=== PATIENT | female | born 1985 | race Caucasian/White ===

== ENCOUNTER 2017-05-11 19:31 | Emergency (ER) | payer SELFPAY ==
[~2017-05-11] VITALS: Ht 160 cm; Wt 52.2 kg
--- NOTE | 2017-05-11 21:00 | NUR ---
PT BIB [address] 85 AND [employer]ICE FOLLOWING SEIZURE. PT A&O, RESPONSIVE, AND ANSWERS APPROPRIATELY. NO DISTRESS NOTED AT THIS TIME. PT RESTING IN A POSITON OF COMFORT. SIDES OF BED PADDED FOR PT SAFETY. PT DENIES HX OF SEIZURE DISORDER.
--- NOTE | 2017-05-11 21:15 | NUR ---
ROBEL FAYE AT BEDSIDE FOR MSE.
[2017-05-11 21:39] LABS: BASOPHILS # (AUTO) 0.1 K/uL (0.0-8.0); BASOPHILS % (AUTO) 1.2 % (0.0-2.0); HEMATOCRIT 36.2 % (31.2-41.9); HEMOGLOBIN 12.5 g/dL (10.9-14.3); LYMPHOCYTES # (AUTO) 0.6 K/uL (20.0-40.0); MEAN CORPUSCULAR HEMOGLOBIN 33.5 uug (24.7-32.8); MEAN CORPUSCULAR HGB CONC 34 g/dL (32.3-35.6); MEAN CORPUSCULAR VOLUME 97.3 fL (75.5-95.3); MONOCYTES # (AUTO) 0.3 K/uL (2.0-10.0); NEUTROPHILS # (AUTO) 6.9 K/uL (1.8-8.9); NEUTROPHILS % (AUTO) 86.8 % (38.5-71.5); PLATELET COUNT (AUTO) 90 K/uL (179-408); RED BLOOD CELL COUNT(AUTO) 3.72 MIL/uL (3.63-4.92); WHITE BLOOD COUNT (AUTO) 7.9 K/uL (3.8-11.8)
[2017-05-11 21:42] LABS: CREATININE 0.8 mg/dL (0.6-1.3); POTASSIUM 3.3 mmol/L (3.5-5.1)
[2017-05-11 21:58] LABS: BAND % (MANUAL) 3 % (0-10); LYMPHOCYTES % (MANUAL) 7 % (20-40); MONOCYTES % (MANUAL) 5 % (2-10); NEUTROPHILS % (MANUAL) 85 % (42-75)
[2017-05-11] MEDS ORDERED: ONDANSETRON ODT 4 MG TAB.RAPDIS SL ONE (22:30)
[2017-05-11] MEDS ORDERED: ONDANSETRON ODT 4 MG TAB.RAPDIS ONE (22:31)
[2017-05-11] MEDS ORDERED: ACETAMINOPHEN ES 500 MG TABLET ONE (22:39)
--- NOTE | 2017-05-11 22:42 | NUR ---
Patient discharged to home in stable conditon. Written and verbal after care instructions given. Patient verbalizes understanding of instructions. Pt ambulated from ER w/ steady gait. No distress noted. Pt took all personal belongings.
[2017-05-11] MEDS ORDERED: ACETAMINOPHEN 325 MG TABLET PO ONE (22:45)
[2017-05-11 22:46] VITALS: BP 111/66
== END 2017-05-11 22:48 | disposition home or self-care (01) ==
LOC: ER 19:31
DX: G40.909 Epilepsy, unspecified, not intractable, without status epilepticus (principal); F41.9 Anxiety disorder, unspecified
CPT/HCPCS: 36415; 80048; 84703; 85025; 99284; A4663; A9150; Q0162

== ENCOUNTER 2019-03-12 16:33 | Emergency (ER) | END 2019-03-12 20:10 | disposition home or self-care (01) | DX: F10.239 Alcohol dependence with withdrawal, unspecified (principal); F41.9 Anxiety disorder, unspecified; Z79.899 Other long term (current) drug therapy; Z86.69 Personal history of other diseases of the nervous system and sense organs; Y90.0 Blood alcohol level of less than 20 mg/100 ml | CPT/HCPCS: 36415; 70450; 71045; 80048; 80076; 80307; 81000; 81001; 84484; 84703; 85025; 87077; 87086; 87186; 93005; 99284; G0480; J2060 ==